=== PATIENT | female | born 1950 | race Caucasian/White ===

== ENCOUNTER → 2020-06-20 | Outpatient (CLI) | payer OTHER ==
[~2020-06-20] MED LIST: ACYCLOVIR 400400 MG PO; AZULFADINE PO; FOLIC ACID; FOLIC ACID PO; FOLIC ACID1 MG PO; HYDROCODON-ACE1 EACH PO; MOBIC7.5 MG PO; NEURONTIN 300M300 M2 PO; ONDANSETRON HCL4 M2 PO; PAMELOR; PREDNISOLONE; PREDNISONE 5 MG5 M1 PO; PREVACID15 MG PO; SULFASALAZINE500 M4 PO; TRAMADOL 50 MG50 MG PO; TRILEPTAL150 MG PO; VALIUM2 MG; VALIUM2 MG PO; VICODIN; ZYRTEC PO; ZYRTEC10 MG PO; [UNRECOGNIZED DRUG - REMARK]
== END ==
LOC: M.CT 07:34
PROVIDERS: ATTEND Family Medicine
DX: K57.30 Diverticulosis of large intestine without perforation or abscess without bleeding (principal); K59.00 Constipation, unspecified

== ENCOUNTER → 2020-12-06 | Outpatient (CLI) | payer OTHER | LOC: M.ULTRA 12:37 | PROVIDERS: ATTEND Nurse Practitioner Family | DX: R60.0 Localized edema (principal) ==